=== PATIENT | male | born 1940 | race Caucasian/White ===

== ENCOUNTER 2025-03-18 15:30 | Emergency (ER) | payer OTHER ==
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
[2025-03-18] MEDS ORDERED: LIDOCAINE 2% W/EPI 1:200,000 MPF 20 ML VIAL IM ONE (15:57)
[2025-03-18] MEDS ORDERED: TDAP (DIPHTH,PERTUSS(ACELL),TET VAC) 0.5 ML VIAL IMVAC ONE (15:57)
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
--- NOTE | 2025-03-18 16:41 | ER ---
Nurse's Notes [facility] Name: Avis Fofana Age: 84 yrs Sex: Male : 1940 Arrival Date: 03/18/2025 Time: 15:30 Bed 15 Private MD: Diagnosis: Fall on same level, unspecified;Unspecified injury of head, initial encounter;Laceration without foreign body of scalp Presentation: 03/18 15:34 Chief complaint: EMS states: toned out to [facility] for mechanical fall, hit his me1 head. Laceration to right scalp. Denies LOC. No blood thinners. Coronavirus screen: Vaccine status: Patient reports being unvaccinated. Ebola Screen: No symptoms or risks identified at this time. Initial Sepsis Screen: Does the patient meet any 2 criteria? No. Patient's initial sepsis screen is negative. Does the patient have a suspected source of infection? No. Patient's initial sepsis screen is negative. Risk Assessment: Do you want to hurt yourself or someone else? Patient reports no desire to harm self or others. Onset of symptoms was March 18, 2025 at 15:10. 15:34 Method Of Arrival: EMS: [facility] 15:34 Acuity: JEREMÍAS 3 me1 Triage Assessment: 15:43 General: Appears in no apparent distress. comfortable, well groomed, well developed, me1 well nourished, Behavior is calm, cooperative, appropriate for age, Reports s/p mechanical fall with laceration to right scalp. Pain: Denies pain. EENT: No signs and/or symptoms were reported regarding the EENT system. Neuro: Level of Consciousness is awake, alert, obeys commands, Oriented to person, place, time, situation, Appropriate for age. Cardiovascular: Patient's skin is warm and dry. Respiratory: Airway is patent Respiratory effort is even, unlabored, Respiratory pattern is regular, symmetrical. GI: No signs and/or symptoms were reported involving the gastrointestinal system. : No signs and/or symptoms were reported regarding the genitourinary system. Derm: Wound noted right side of the back of head Wound is laceration. Musculoskeletal: No signs and/or symptoms reported regarding the musculoskeletal system. Injury Description: mechanical fall, hit head, laceration to right scalp. Historical: - Allergies: 15:43 No Known Allergies; me1 - PMHx: 15:43 Hypertensive disorder; Gastroesophageal reflux disease; subdural hematoma; me1 Diverticulitis; breast cancer; - PSHx: 15:43 L4 and L5 fusion; L3 laminectomy; Colectomy; R mastectomy; me1 - Immunization history:: Adult Immunizations up to date. - Infectious Disease History:: Denies. - Social history:: Smoking status: Patient denies any tobacco usage or history of. Screenin:50 [facility] ED Fall Risk Assessment (Adult) History of falling in the last 3 months, me1 including since admission No falls in past 3 months (0 pts) Confusion or Disorientation No (0 pts) Intoxicated or Sedated No (0 pts) Impaired Gait No (0 pts) Mobility Assist Device Used No (0 pt) Altered Elimination No (0 pt) Score/Fall Risk Level 0 - 2 = Low Risk Maintained a safe environment, Provided non-skid footwear, Hourly rounding (assess needs \T\ fall precautionary measures) done. Abuse screen: Denies threats or abuse. Nutritional screening: No deficits noted. Tuberculosis screening: No symptoms or risk factors identified. Assessment: 15:50 General: See triage assessment. me1 Vital Signs: 15:34 BP 165 / 66; Pulse 61; Resp 17; Temp 98.4; Pulse Ox 99% ; Weight 108.86 kg; Height 5 me1 ft. 10 in. ; Pain 0/10; 16:00 BP 179 / 60; Pulse 57; Resp 16; Pulse Ox 99% ; me1 16:50 BP 171 / 58; Pulse 55; Resp 17; Temp 98.2; Pulse Ox 100% ; me1 15:34 Body Mass Index 34.44 (108.86 kg, 177.8 cm) me1 15:34 Pain Scale: Adult nh1 ED Course: 15:33 Patient arrived in ED. me1 15:34 Elizabeth Whalen FNP-C is [facility]. ms3 15:34 Santosh Solares MD is Attending Physician. ms3 15:43 Triage completed. me1 15:43 Arm band placed on Patient placed in an exam room. me1 15:50 Patient has correct armband on for positive identification. Bed in low position. Call [facility] light in reach. Side rails up X 1. Provided Education on: POC. Verbalized understanding.. Client placed on continuous cardiac and pulse oximetry monitoring. NIBP monitoring applied. Pulse ox on. NIBP on. 15:50 No provider procedures requiring assistance completed. me1 15:55 Sindy Echols, RN is Primary Nurse. me1 15:56 CT Head C Spine In Process Unspecified. EDMS 16:50 Patient did not have IV access during this emergency room visit. me1 Administered Medications: 16:01 Drug: Boostrix Tdap IM 0.5 ml IM once; as a single dose Route: IM; Site: left deltoid; me1 16:17 Follow up: Response: No adverse reaction me1 16:41 Not Given (Patient Refused): xtbckkior-zjcvfvmpsyz-5%: (1:100,000) 1 vials 20 ml me1 Infiltration once; to bedside Medication: 15:50 VIS not applicable for this client. me1 Outcome: 16:40 Discharge ordered by . kb 16:57 Discharged to home via wheelchair, with family, me1 16:57 Condition: stable 16:57 Discharge instructions given to patient, family, Instructed on discharge instructions, follow up and referral plans. wound care, Demonstrated understanding of instructions, follow-up care, wound care, 16:57 Patient left the ED. me1 Signatures: Dispatcher [employer] Elizabeth Anderson FNP-Henry WEBSTER-Deng Vega, DO ms3 Sindy Echols, RN RN me1 Corrections: (The following items were deleted from the chart) 15:48 15:43 PSHx: L4 and L5 laminectomy; me1 me1 16:41 16:17 Lidocaine-Epinephrine Infiltration -1%: (1:100,000) 1 vials 20 ml Infiltration; me1 Administered by DARIN Gonzalez me1
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
[2025-03-18 17:13] VITALS: BP 171/58; TEMP 98.2; O2SAT 100
== END 2025-03-18 16:57 | disposition home or self-care (01) ==
LOC: ER 15:30
DX: S01.01XA Laceration without foreign body of scalp, initial encounter (principal); W18.30XA Fall on same level, unspecified, initial encounter; Z23 Encounter for immunization
CPT/HCPCS: 12032; 70450; 72125; 90715; 96372; 99284